=== PATIENT | male | born 1960 | race Caucasian/White ===

== ENCOUNTER 2022-02-23 13:11 | Outpatient (REF) | payer OTHER, SELFPAY ==
[2022-02-23 13:34] LABS: COVID-19 Test Negative (Negative)
== END 2022-02-23 13:12 | disposition home or self-care (01) ==
LOC: HO.HVNA 13:11
PROVIDERS: Visit Provider Family Medicine
DX: U07.1 COVID-19 (principal); J96.01 Acute respiratory failure with hypoxia
CPT/HCPCS: 87635

== ENCOUNTER 2022-02-24 15:06 | Outpatient (REF) | payer OTHER, SELFPAY ==
[2022-02-24 15:28] LABS: COVID-19 Test Negative (Negative); IDNOW Serial# 16C4AD1C
== END 2022-02-24 15:07 | disposition home or self-care (01) ==
LOC: HO.HVNA 15:06
PROVIDERS: Visit Provider Family Medicine
DX: Z20.822 Contact with and (suspected) exposure to COVID-19 (principal); Z86.16 Personal history of COVID-19
CPT/HCPCS: 87635

== ENCOUNTER 2022-03-07 14:15 | Outpatient (REF) | payer OTHER, SELFPAY ==
[2022-03-07 14:33] LABS: Appearance Urine CLEAR; Color Urine YELLOW; Glucose Urine UA NEG (NEG); Leukocyte Esterase Urine NEG (NEG); Nitrite Urine NEG (NEG); Specific Gravity - Urine 1.025 (1.005-1.025); Urine Blood NEG (NEG); Urine Ketones NEG (NEG); Urine Protein NEG (NEG-TRACE)
== END 2022-03-07 14:16 | disposition home or self-care (01) ==
LOC: HO.HVNA 14:15
PROVIDERS: Visit Provider Family Medicine
DX: A41.89 Other specified sepsis (principal); N39.0 Urinary tract infection, site not specified
CPT/HCPCS: 81003; 87086

== ENCOUNTER 2022-04-10 13:48 | Outpatient (REF) | payer OTHER, SELFPAY ==
[2022-04-10 14:04] LABS: Appearance Urine Clear; Color Urine Dark Yellow; Glucose Urine UA Negative (Negative); Leukocyte Esterase Urine Small (1+) (Negative); Nitrite Urine Negative (Negative); Urine Blood Negative (Negative); Urine Ketones Negative (Negative); Urine Protein Trace mg/dL (Neg-Trace)
[2022-04-10 14:16] LABS: Bacteria Urine None Seen (None Seen); Calcium Oxalate Crystals Urine Present; Squamous Epithelial Cell Urine 0-2 /HPF (0-2); UACC Culture Trigger YES
== END 2022-04-10 13:49 | disposition home or self-care (01) ==
LOC: HO.HVNA 13:48
PROVIDERS: Visit Provider Family Medicine
DX: Z13.89 Encounter for screening for other disorder (principal)
CPT/HCPCS: 81001; 81003; 87086

== ENCOUNTER 2022-05-08 12:48 | Outpatient (REF) | payer OTHER, SELFPAY ==
[2022-05-08 14:08] LABS: Appearance Urine Clear; Color Urine Yellow; Glucose Urine UA Negative (Negative); Leukocyte Esterase Urine Small (1+) (Negative); Nitrite Urine Negative (Negative); PH 6.5 (5.0-9.0); UMIC TRIGGER UA YES; Urine Blood Negative (Negative); Urine Ketones Negative (Negative); Urine Protein Negative (Neg-Trace)
[2022-05-08 14:14] LABS: Bacteria Urine None Seen (None Seen); Hyaline Casts Urine 0-2 /LPF (0-2); RBC Urine 0-2 /HPF (0-2); Squamous Epithelial Cell Urine 0-2 /HPF (0-2)
== END 2022-05-08 12:49 | disposition home or self-care (01) ==
LOC: HO.LNP 12:48
PROVIDERS: Visit Provider Internal Medicine
DX: R30.0 Dysuria (principal)
CPT/HCPCS: 81001; 81003; 87086

== ENCOUNTER 2022-06-25 07:08 | Outpatient (REF) | payer OTHER, SELFPAY ==
--- NOTE | ~2022-06-25 | XR_ITS ---
EXAMINATION: XR FOOT, RIGHT XR FOOT, LEFT CLINICAL INFORMATION: Pain in unspecified foot. COMPARISON: None TECHNIQUE: 3 views of each foot. FINDINGS: LEFT FOOT: There is no visible acute fracture, dislocation or subluxation seen. No bony erosive changes. The ankle mortise and subtalar joints are normal. There is a moderate-sized calcaneal spur. There is soft tissue calcification posterior to the Achilles tendon and posterior plantaris tendon suggestive of myositis ossificans, probably secondary to injury. RIGHT FOOT: There are kissing osteophytes along the proximal 3rd and 4th metatarsals. No visible acute fracture, dislocation or subluxation is seen. There is loss of the PIP joint space with periarticular spurring. XR/XR foot RT min 3V IMPRESSION: 1. No acute fracture or dislocation left foot. There is a moderate-sized calcaneal heel spur. 2. There are kissing osteophytes along the proximal 3rd and 4th metatarsals of the right foot. No visible acute fracture, dislocation or subluxation is seen. 3. No visible acute fracture or dislocation of the left ankle. There is extensive soft tissue calcification posterior to the Achilles tendon and proximal plantaris tendon extending along the calcaneus, likely myositis ossificans. This could be related to remote injury.
--- NOTE | ~2022-06-25 | XR_ITS ---
EXAMINATION: XR FOOT, RIGHT XR FOOT, LEFT CLINICAL INFORMATION: Pain in unspecified foot. COMPARISON: None TECHNIQUE: 3 views of each foot. FINDINGS: LEFT FOOT: There is no visible acute fracture, dislocation or subluxation seen. No bony erosive changes. The ankle mortise and subtalar joints are normal. There is a moderate-sized calcaneal spur. There is soft tissue calcification posterior to the Achilles tendon and posterior plantaris tendon suggestive of myositis ossificans, probably secondary to injury. RIGHT FOOT: There are kissing osteophytes along the proximal 3rd and 4th metatarsals. No visible acute fracture, dislocation or subluxation is seen. There is loss of the PIP joint space with periarticular spurring. XR/XR foot LT min 3V IMPRESSION: 1. No acute fracture or dislocation left foot. There is a moderate-sized calcaneal heel spur. 2. There are kissing osteophytes along the proximal 3rd and 4th metatarsals of the right foot. No visible acute fracture, dislocation or subluxation is seen. 3. No visible acute fracture or dislocation of the left ankle. There is extensive soft tissue calcification posterior to the Achilles tendon and proximal plantaris tendon extending along the calcaneus, likely myositis ossificans. This could be related to remote injury.
== END 2022-06-25 07:09 | disposition home or self-care (01) ==
LOC: HO.HOSX 07:08
PROVIDERS: Visit Provider Physician Assistant
DX: M79.672 Pain in left foot (principal); M79.671 Pain in right foot; R20.0 Anesthesia of skin; R20.2 Paresthesia of skin
CPT/HCPCS: 73630; 99202